=== PATIENT | male | born 1990 | race Caucasian/White ===

== ENCOUNTER 2019-11-11 03:03 | Emergency (ER) | payer OTHER ==
[2019-11-11 03:11] VITALS: BP 163/88
[2019-11-11] MEDS ORDERED: AMOXICILLIN TRIHYDRATE 500 MG CAPSULE PO ONE (03:31)
[2019-11-11] MEDS ORDERED: HYDROCODONE/ACETAMINOPHEN 5-325 MG (6 TAB/ER DISP) PO PRN (03:32)
--- NOTE | 2019-11-11 03:34 | ER Document Report ---
HPI - HPI Time Seen by Provider: 11/11/19 03:09 Pain Level: 5 Notes: 29-year-old male presenting to the emergency department chief complaint of pain and bleeding from his right ear. Patient reports that started just prior to arrival. He states the pain has been ongoing for about 1 day. He denies any trauma to the area, denies placing any items into his ear. Denies any fevers. - CONSTITUTIONAL Constitutional: DENIES: Fever, Chills - EENT EENT: REPORTS: Ear Pain - right. DENIES: Sore Throat, Eye problems - NEURO Neurology: DENIES: Headache, Weakness, Vision blurred, Dizzinesss / Vertigo - CARDIOVASCULAR Cardiovascular: DENIES: Chest pain - RESPIRATORY Respiratory: DENIES: Trouble Breathing, Coughing - GASTROINTESTINAL Gastrointestinal: DENIES: Abdominal Pain, Black / Bloody Stools - URINARY Urinary: DENIES: Dysuria, Urgency, Frequency - REPRODUCTIVE Reproductive: DENIES: :, Postmenopausal, Abnormal bleeding / discharge - MUSCULOSKELETAL Musculoskeletal: DENIES: Extremity pain Past Medical History - General Information source: Patient - Social History Smoking Status: Former Smoker Chew tobacco use (# tins/day): No Frequency of alcohol use: Occasional Drug Abuse: None Family History: Reviewed & Not Pertinent Patient has homicidal ideation: No - Medical History Medical History: Negative Surgical Hx: Negative Vertical Provider Document - CONSTITUTIONAL Notes: PHYSICAL EXAMINATION: GENERAL: Well-appearing, well-nourished and in no acute distress. HEAD: Atraumatic, normocephalic. EYES: Pupils equal round extraocular movements intact, conjunctiva are normal. ENT: Nares patent, left TM and ear canal unremarkable. Right TM unable to visualize, blood dried in the right canal. No mastoid tenderness. NECK: Normal range of motion LUNGS: No respiratory distress Musculoskeletal: Normal range of motion NEUROLOGICAL: Normal speech, normal gait. PSYCH: Normal mood, normal affect. SKIN: Warm, Dry, normal turgor, no rashes or lesions noted. Course - Re-evaluation Re-evalutation: Unable to visualize the right tympanic membrane due to a lot of blood in the ear canal. Likely tympanic rupture although I cannot 100% sure this. Will start patient on antibiotics for otitis media. He will be encouraged to follow-up with ENT. Patient is agreeable to this plan. - Vital Signs Vital signs: Temp Pulse Resp BP Pulse Ox 98.2 F 99 20 163/88 H 94 11/11/19 03:10 11/11/19 03:10 11/11/19 03:10 11/11/19 03:10 11/11/19 03:10 Discharge - Discharge Clinical Impression: Bleeding from right ear Condition: Stable Disposition: HOME, SELF-CARE Additional Instructions: I believe the pain and bleeding from your ear is likely from perforation of your tympanic membrane. Please take medications as prescribed. Please call and follow-up with ENT. I gave you a number below of the ENT physicians here in town. [place] [facility] as [place]. Return to the emergency department with any new or worsening symptoms. Prescriptions: Amoxicillin 1 tab PO TID #30 tab
== END 2019-11-11 03:52 | disposition home or self-care (01) ==
LOC: ER 03:03
DX: H92.21 Otorrhagia, right ear (principal); H66.90 Otitis media, unspecified, unspecified ear; H92.01 Otalgia, right ear; Z87.891 Personal history of nicotine dependence
CPT/HCPCS: 99282